=== PATIENT | female | born 1970 | race Caucasian/White ===

== ENCOUNTER 2021-01-04 22:42 | Emergency (ER) | payer BC, OTHER ==
[~2021-01-04] VITALS: Ht 157.5 cm; Wt 83.9 kg
--- NOTE | 2021-01-04 22:48 | NUR ---
Patient presents to ED with C/O lower back, coccyx pain that started about three days ago. Patient states, "It just started hurting and has gotten worse over the last three days. When standing for long periods of time, the pain radiates up my back and across my left hip to front. I tried tylenol, ibuprofen, and naproxen and the naproxen helped a little, but not much." Patient rates pain 8/10 and worse with movement. No previous back injuries or pain in back. No other health history.
[2021-01-04 22:54] VITALS: BP 137/82
--- NOTE | 2021-01-04 23:15 | ER.PDOC ---
General Chief Complaint: Lower Back Pain or Injury Stated Complaint: BACK PAIN Time seen by MD: 23:00 Source: patient, family Exam Limitations: no limitations History of Present Illness Initial Comments 50-year-old white female with no prior medical history of anything comes in with complaint of having a low back pain process that started Saturday with some aching in her left lower back. This is not associated with any trauma of any type. She then felt good on Saturday but then Saturday through today this pain is slowly became worse and worse. The pain is all in the left SI joint area and radiates around to the front. She has no pain going down her leg. She has no pain going up in the back. The pain is not associated with any specific things she does. She states that laying down seems to be actually worse than getting up and walking around. She states that sitting is better than lying down. She laid down tonight and that is when her pain became the worst and is the reason she decided to come in to get checked out. Timing/Duration: getting worse, changing over time Severity/Quality: severe, sharpness Radiation: other (Patient pain is over the left SI joint and radiates around to the left side into her left groin area it does not go down the leg.) Method of Injury: other (Patient denies any injury) Modifying Factors: improves with movement (Pain is made better by walking around worse when trying to lay down) Associated Symptoms: denies symptoms Allergies: Coded Allergies: latex (Unverified Allergy, Intermediate, 01/27/15) penicillin (Unverified Allergy, Intermediate, 01/27/15) meloxicam (Verified Allergy, Mild, 01/04/21) Hair falls out Uncoded Allergies: mophine (Allergy, Mild, Rash, 01/04/21) Past Medical History Medical History: no pertinent history Surgical History: cholecystectomy Social History Smoking: non-smoker Alcohol Use: none Drug Use: none Review of Systems Musculoskeletal: see HPI All Other Systems: Reviewed and Negative Physical Exam General Appearance: No Apparent Distress, WD/WN HEENT: PERRL/EOMI, Normal ENT Inspection, TMs Normal, Pharynx Normal Neck: Non-Tender, Normal Alignment Cardiovascular/Respiratory: Regular Rate, Rhythm, No M/R/G, Normal Peripheral Pulses, No JVD, Normal Breath Sounds, No Respiratory Distress Gastrointestinal: Normal Bowel Sounds, No Organomegaly, No Pulsatile Mass, Non Tender, Soft Back: No CVA Tenderness, No Vertebral Tenderness, Decreased Range Of Motion, Other (Patient does have pain over the left SI joint area. She does not have pain on the right side at all. The pain is not midline but right over the SI joint.) Extremities: No Evidence of Injury, Normal Range of Motion, Non-Tender, No Pedal Edema, Pelvis Stable Neuro/Psych: Alert, paving crew foreman nml/symmetrical, mood/effect nml, No Motor/Sensory Deficits, Relexes nml Skin: Normal Color, Warm/Dry Results/Orders Results/Orders Orders - JOSE RIVAS MD Ondansetron Hcl/Pf (Zofran) (01/04/21 23:17) Ketorolac Tromethamine (Toradol) (01/04/21 23:17) Methylprednisolone Acetate (Depo-Medrol) (01/04/21 23:18) Ketorolac Tromethamine (Toradol) (01/04/21 23:30) Ondansetron (Zofran Odt) (01/04/21 23:16) Bupivacaine Hcl/Pf (Sensorcaine 0.5% Via (01/04/21 23:30) Methylprednisolone Acetate (Depo-Medrol) (01/04/21 23:16) Cyclobenzaprine Hcl (Flexeril) (01/04/21 23:41) Vital Signs Date Time Temp Pulse Resp B/P (MAP) Pulse Ox O2 Delivery O2 Flow Rate FiO2 01/04/21 22:54 99.0 97 20 137/82 (100) 97 01/04/21 22:54 99.0 97 20 97 01/04/21 22:54 99.0 97 20 Administered Medications Medications (Trade) Dose Ordered Sig/Shahzad Route PRN Reason Start Time Stop Time Status Last Admin Dose Admin Bupivacaine HCl (Sensorcaine 0.5% Vial) 5 mg OT ONCE IJ 01/04/21 23:30 01/04/21 23:31 UNV 01/04/21 23:33 5 MG Ketorolac Tromethamine (Toradol) 60 mg OT ONCE IM 01/04/21 23:30 01/04/21 23:31 UNV 01/04/21 23:30 60 MG Methylprednisolone Acetate (Depo-Medrol) 40 mg STAT STAT IM 01/04/21 23:16 01/04/21 23:17 UNV 01/04/21 23:33 40 MG Ondansetron HCl (Zofran Odt) 4 mg OT STAT SL 01/04/21 23:16 01/04/21 23:17 UNV 01/04/21 23:25 4 MG Progress Progress I offered a steroid and bupivacaine shot into her painful L4-L5 facet area and in the L5-S1 joint area. Patient agreed to the injection. The use total of 10 cc with 9 cc BN 0.5 bupivacaine and 1 cc of Depo-Medrol for a total of 40 mg of Depo. Patient was laying flat on her abdomen the most tender point was isolated and an injection was made into that. Did locate the facet with finding the spinous process and then lateral and inferior to that fill the bony aspect of the facet. A block was then placed directly into that and her pain dramatically improved. This was the L4-5 facet. And moved down and injected some at the L5S1 junction and head some more improvement but not as much as the L4-5.Patient is been up walking around twisting and turning and finds that her back pain is dramatically better. ER DEPART Departure Time of Disposition: 23:49 Disposition: 01 HOME / SELF CARE / HOMELESS Impression: Primary Impression: Low back pain Condition: Improved Referrals: PATEL HURLEY-C (PCP) PRIMARY CARE PROVIDER Comments motrin 800mg, one po tid prn pain, Tramadol 50mg, one po tid prn pain, #20 Duration or Time Spent with Pa: 20m JOSE RIVAS MD Jan 04, 2021 23:15
[2021-01-04] MEDS ORDERED: DEPO-MEDROL IM STA (23:16)
[2021-01-04] MEDS ORDERED: ZOFRAN ODT SL STA (23:16)
[2021-01-04] MEDS ORDERED: TORADOL ONE (23:17)
[2021-01-04] MEDS ORDERED: ZOFRAN ONE (23:17)
[2021-01-04] MEDS ORDERED: DEPO-MEDROL ONE (23:18)
[2021-01-04] MEDS ORDERED: SENSORCAINE 0.5% VIAL ONE (23:23)
[2021-01-04] MEDS ORDERED: TORADOL IM ONE (23:30)
[2021-01-04] MEDS ORDERED: SENSORCAINE 0.5% VIAL IJ ONE (23:30)
[2021-01-04] MEDS ORDERED: FLEXERIL ONE (23:41)
[2021-01-04] MEDS ORDERED: FLEXERIL PO STA (23:49)
== END 2021-01-04 23:55 | disposition home or self-care (01) ==
LOC: ER 22:42
DX: M54.5 Low back pain (principal); Z79.1 Long term (current) use of non-steroidal anti-inflammatories (NSAID); Z79.52 Long term (current) use of systemic steroids; Z79.899 Other long term (current) drug therapy; Z88.0 Allergy status to penicillin; Z88.8 Allergy status to other drugs, medicaments and biological substances; Z90.49 Acquired absence of other specified parts of digestive tract
CPT/HCPCS: 20552; 96372; 99284; J1885; J2405; J3490; J1030